=== PATIENT | female | born 1985 | race Hispanic/Latino ===

== ENCOUNTER 2018-06-16 12:36 | Emergency (ER) | payer OTHER ==
[2018-06-16 12:51] VITALS: TEMP 99
--- NOTE | 2018-06-16 13:22 | ED PDOC ---
HPI: Seizure Time Seen by Provider: 06/16/18 12:54 Chief Complaint (Nursing): Seizure Chief Complaint (Provider): Seizure History Per: Patient Additional Complaint(s): 33 yo female, admits to a PMH of ETOH abuse and recent seizure activity, presents to ED for evaluation of seizure. Pt reports that she developed seizures in September , was being followed by a neuoloist in [facility] according to Pt, who RXd [place]. Pt refusing to take mediations. Pt jittery upon arrival, reports he last drink was 3 days ago. Pt with (+) AOB, slurring speech Past Medical History Reviewed: Nursing Documentation, Vital Signs Vital Signs: Last Vital Signs Temp 99 F 06/16/18 12:48 Pulse 114 H 06/16/18 12:48 Resp 22 06/16/18 13:35 BP 139/74 06/16/18 13:35 Pulse Ox 97 06/16/18 13:35 - Medical History PMH: Anxiety - Family History Family History: States: Unknown Family Hx - Social History Current smoker - smoking cessation education provided: No Alcohol: > 2 Drinks/Day Drugs: Cannabis, Opiates - Home Medications Home Medications: Ambulatory Orders Medication Instructions Recorded Cyclobenzaprine [Flexeril] 5 mg PO BID #60 tab 05/16/18 Escitalopram [Lexapro] 10 mg PO DAILY #30 tab 05/16/18 Gabapentin [Neurontin] 100 mg PO TID #90 cap 05/16/18 Magnesium Oxide [Mag-Ox] 400 mg PO DAILY #30 tab 05/16/18 hydrOXYzine HCl [Atarax] 25 mg PO DAILY PRN #30 tab 05/16/18 traZODone [Desyrel] 50 mg PO HS PRN #30 tab 05/16/18 - Allergies Allergies/Adverse Reactions: Allergies Allergy/AdvReac Type Severity Reaction Status Date / Time iv contrast Allergy RASH Uncoded 06/16/18 12:48 Review of Systems ROS Statement: Except As Marked, All Systems Reviewed And Found Negative Neurological: Positive for: Headache Physical Exam - Reviewed Nursing Documentation Reviewed: Yes Vital Signs Reviewed: Yes - Physical Exam Appears: Positive for: Well, Non-toxic, No Acute Distress Head Exam: Positive for: ATRAUMATIC, NORMAL INSPECTION, NORMOCEPHALIC Skin: Positive for: Normal Color, Warm, DRY Eye Exam: Positive for: EOMI, Normal appearance, PERRL ENT: Positive for: Normal ENT Inspection Neck: Positive for: Normal, Painless ROM Cardiovascular/Chest: Positive for: Regular Rate, Rhythm Respiratory: Positive for: CNT, Normal Breath Sounds Gastrointestinal/Abdominal: Positive for: Normal Exam, Soft Back: Positive for: Normal Inspection Extremity: Positive for: Normal ROM Neurologic/Psych: Positive for: Alert, Oriented - Laboratory Results Result Diagrams: 06/16/18 14:03 06/16/18 14:03 - ECG O2 Sat by Pulse Oximetry: 99 Medical Decision Making Medical Decision Making: IV access established and treatment initiated with IVF, Ativan and Zofran Pt appears greatly improved on re-eval Repeat pulse: 98 BP: 138/78 POX: 99% on RA ETOH [address]: Mild right frontal -parietal scalp contusion Pt on re-eval reports headache, Pt given Toradol IV and food tray on second re- eval. Stable for discharge at this time Pt ambulating with steady gait Disposition - Clinical Impression Clinical Impression: Alcohol intoxication - Patient ED Disposition Is Patient to be Admitted: No - Disposition Disposition: Routine/Home Disposition Time: 18:10 Condition: STABLE Instructions: Alcohol Abuse and Alcoholism (DC) Forms: [employer] (Azeri)
[2018-06-16] MEDS ORDERED: Sodium Chloride 0.9% 1,000 ML IV STA ×2 (13:24→15:29)
[2018-06-16 14:08] LABS: BASO % 0.9 % (0.0-2.0); EOS % 0.6 % (0.0-4.0); HEMOGLOBIN 14.8 g/dL (12.0-16.0); LYMPH # 1.8 K/uL (1.0-4.3); LYMPH % 31.4 % (20.0-40.0); MEAN CELL VOLUME 106.4 fl (81.0-99.0); MEAN CORPUSCULAR HGB CONC 33.9 g/dL (33.0-37.0); MEAN PLATELET VOLUME 7.7 fl (7.2-11.7); MONO # 0.2 K/uL (0.0-0.8); MONO % 4.3 % (0.0-10.0); NEUT # 3.6 K/uL (1.8-7.0); NEUT % 62.8 % (50.0-75.0); RBC 4.11 Mil/uL (3.80-5.20); RED CELL DISTRIBUTION WIDTH 13.8 % (11.5-14.5); WHITE BLOOD COUNT 5.7 K/uL (4.8-10.8)
[2018-06-16 14:22] LABS: ALB/GLOB RATIO 1.1 (1.0-2.1); ALBUMIN 4.8 g/dL (3.5-5.0); ALT/SGPT 81 U/L (9-52); AST/SGOT 235 U/L (14-36); BLOOD UREA NITROGEN 9 mg/dl (7-17); CALCIUM 9.4 mg/dL (8.4-10.2); GFR NON-AFRICAN AMERICAN > 60
--- NOTE | 2018-06-16 16:17 | CT ---
Date of service: 06/16/2018 PROCEDURE: CT HEAD WITHOUT CONTRAST. HISTORY: fall s/p seizure COMPARISON: None available. TECHNIQUE: Axial computed tomography images were obtained through the head/brain without intravenous contrast. Radiation dose: Total exam DLP = 874.75 mGy-cm. This CT exam was performed using one or more of the following dose reduction techniques: Automated exposure control, adjustment of the mA and/or kV according to patient size, and/or use of iterative reconstruction technique. FINDINGS: HEMORRHAGE: No intracranial hemorrhage. BRAIN: No mass effect or edema. No atrophy or chronic microvascular ischemic changes. VENTRICLES: Unremarkable. No hydrocephalus. CALVARIUM: No calvarial fracture. Probable mild scalp contusion high right frontoparietal. PARANASAL SINUSES: Unremarkable as visualized. No significant inflammatory changes. MASTOID AIR CELLS: Unremarkable as visualized. No inflammatory changes. OTHER FINDINGS: None. IMPRESSION: No intracranial hemorrhage. No intracranial mass or evidence of acute infarct. Probable mild high right frontoparietal scalp contusion.
--- NOTE | 2018-06-16 16:35 | RAD ---
Date of service: 06/16/2018 PROCEDURE: CHEST RADIOGRAPH, 1 VIEW HISTORY: med screening COMPARISON: None available. FINDINGS: LUNGS: Clear. PLEURA: No pneumothorax or pleural fluid seen. CARDIOVASCULAR: Normal. OSSEOUS STRUCTURES: No significant abnormalities. VISUALIZED UPPER ABDOMEN: Normal. OTHER FINDINGS: None. IMPRESSION: No active disease.
[2018-06-16 16:45] LABS: SQUAMOUS EPITHIAL < 1 /hpf (0-5); URINE BACTERIA RARE (<OCC); URINE BILIRUBIN NEGATIVE (NEGATIVE); URINE BLOOD LARGE (NEGATIVE); URINE CLARITY SLIGHTY-CLOUDY (Clear); URINE COLOR YELLOW (YELLOW); URINE GLUCOSE (UA) NEG (Normal); URINE HYALINE CAST >20 /hpf (0-2); URINE LEUKOCYTE ESTERASE NEG Leu/uL (Negative); URINE PROTEIN 100 mg/dL (NEGATIVE); URINE UROBILINOGEN 0.2-1.0 mg/dL (0.2-1.0)
[2018-06-16 16:47] LABS: BARBITURATES, UR NEGATIVE (NEGATIVE); BENZODIAZEPINES, UR POSITIVE (NEGATIVE); OPIATES, UR NEGATIVE (NEGATIVE); PHENCYCLIDINE, UR NEGATIVE (NEGATIVE)
[2018-06-16 18:12] VITALS: O2SAT 99
[2018-06-16 18:25] VITALS: BP 131/77; PULSE 95; RESP 20
--- NOTE | 2018-06-17 07:49 | CARD ---
APPROVED REPORT Date of service: 06/16/2018 EKG Measurement Heart [id number] <Conclusion> Normal sinus rhythm Prolonged QT Abnormal ECG
== END 2018-06-16 20:00 | disposition home or self-care (01) ==
LOC: H.ER 12:36
DX: F10.129 Alcohol abuse with intoxication, unspecified (principal); R51 Headache; R56.9 Unspecified convulsions; F41.9 Anxiety disorder, unspecified
CPT/HCPCS: 70450; 71045; 80053; 80320; 80324; 80345; 80346; 80349; 80353; 80358; 80361; 81003; 82550; 82948; 83992; 84703; 85025; 93005; 96374; 99285; J1885; J2060; J2405; J7030